=== PATIENT | female | born 1990 | race Two or more races ===

== ENCOUNTER → 2017-11-27 | Outpatient (CLI) | payer SELFPAY ==
--- NOTE | 2017-11-27 15:38 | RADIOLOGY REPORT (SQ) ---
EXAM DESCRIPTION: U/S [id number] TRNABD 1GES W/ODOP COMPLETED DATE/TIME: 11/27/2017 3:21 pm REASON FOR STUDY: Z34.81 ENCOUNTER FOR SUPRVSN OF NORMAL , FIRST TRIMESTER Z34.81 ENCOUNTE R FOR SUPRVSN OF NORMAL , FIRST TRIM COMPARISON: None. TECHNIQUE: Transabdominal static and realtime grayscale images acquired of the pelvis. Additional se lected spectral and color Doppler images recorded. All images stored on PACs. CG: Not available. CLINICAL DATES: LMP 09/25/2017. 9 weeks. LIMITATIONS: None. FINDINGS: FETUS: Single Living intrauterine . ULTRASOUND EGA: 8 weeks 6 days ULTRASOUND DAVID: 07/03/2018 EFW: Not applicable less than 20 weeks. CRL: 2.2 cm. FHR: 171 beats per minute. SURVEY: Too early to assess. AMNIOTIC FLUID: Adequate amount. PLACENTA: Not yet developed due to early gestation. SUBCHORIONIC BLEED: No SIZE OF BLEED: Not applicable. UTERUS: No masses. No anomalies. 13.5 x 8.1 x 7.2 cm. CERVICAL LENGTH: 3.4 cm. Closed. RIGHT ADNEXA: Normal ovary with normal vascular flow. 2.9 x 2.1 x 1.7 cm. No adnexal free fluid. No adnexal masses. LEFT ADNEXA: Normal ovary with normal vascular flow. 2.6 x 2 x 2.4 cm. No adnexal free fluid. No adnexal masses. FREE FLUID: None. OTHER: No other significant finding. IMPRESSION: LIVING INTRAUTERINE . EGA 8 weeks 6 days. Trimester of : First - 0 to 13 weeks. TECHNICAL DOCUMENTATION: JOB ID: [id number] [employer]- All Rights Reserved rev-07/07 Reading location - IP/workstation name: [email or web address]
== END ==
LOC: RAD 15:48
PROVIDERS: ATTEND Nurse Practitioner
DX: Z34.81 Encounter for supervision of other normal pregnancy, first trimester (principal)
CPT/HCPCS: 76801

== ENCOUNTER 2018-01-19 19:46 | Emergency (ER) | payer MEDICAID ==
[2018-01-19] MEDS ORDERED: HYDROCODONE/ACETAMINOPHEN 5-325 MG TABLET PO ONE (20:21)
--- NOTE | 2018-01-19 20:22 | ER Document Report ---
ED Medical Screen (RME) - General Chief Complaint: Flank Pain Stated Complaint: RIGHT SIDED PAIN,PAINFUL URINATION Time Seen by Provider: 01/19/18 20:19 Notes: 27 years old female presents today with right flank pain radiated to the groin for the last few days, she is 17 weeks . Denies any abdominal or pelvic cramps. The pain is constant. She was diagnosed with a UTI yesterday and given antibiotic. No flank tenderness or no tenderness over the right lower quadrant. TRAVEL OUTSIDE OF THE [place] IN LAST 30 DAYS: No Physical Exam - Vital signs Vitals: Temp Pulse Resp BP Pulse Ox 98.2 F 94 16 126/79 H 100 01/19/18 19:58 01/19/18 19:58 01/19/18 19:58 01/19/18 19:58 01/19/18 19:58 Course - Vital Signs Vital signs: Temp Pulse Resp BP Pulse Ox 98.2 F 94 16 126/79 H 100 01/19/18 19:58 01/19/18 19:58 01/19/18 19:58 01/19/18 19:58 01/19/18 19:58 Doctor's Discharge - Discharge Referrals: AZEB BARRETO, EMILY [Primary Care Provider] - Follow up as needed
[2018-01-19 21:03] LABS: ABSOLUTE BASOPHILS # (AUTO) 0.1 10^3/uL (0.0-0.2); ABSOLUTE EOSINOPHILS # (AUTO) 0.1 10^3/uL (0.0-0.6); ABSOLUTE LYMPHOCYTES (AUTO) 3.7 10^3/uL (0.5-4.7); ABSOLUTE MONOCYTES (AUTO) 1.1 10^3/uL (0.1-1.4); ABSOLUTE NEUT (AUTO) 11.8 10^3/uL (1.7-8.2); BASOPHILS % (AUTO) 0.6 % (0-2); EOSINOPHILS % (AUTO) 0.5 % (0-6); HEMATOCRIT 36.3 % (36.0-47.0); HEMOGLOBIN 12.5 g/dL (12.0-15.5); MEAN CORPUSCULAR HEMOGLOBIN 29.7 pg (27.0-33.4); MEAN CORPUSCULAR HGB CONC 34.6 g/dL (32.0-36.0); MEAN CORPUSCULAR VOLUME 86 fl (80-97); MONOCYTES % (AUTO) 6.6 % (3-13); PLATELET COUNT 302 10^3/uL (150-450); RED BLOOD COUNT 4.23 10^6/uL (3.72-5.28); SEGMENTED NEUTROPHILS % (AUTO) 70.3 % (42-78); TOTAL CELLS COUNTED % (AUTO) 100 %; WHITE BLOOD COUNT 16.7 10^3/uL (4.0-10.5)
[2018-01-19 21:18] LABS: APPEARANCE,URINE CLEAR; BILIRUBIN,URINE NEGATIVE (NEGATIVE); COLOR,URINE COLORLESS; GLUCOSE, URINE NEGATIVE (NEGATIVE); KETONES,URINE NEGATIVE (NEGATIVE); LEUKOCYTE ESTERASE,URINE LARGE (NEGATIVE); NITRITE,URINE NEGATIVE (NEGATIVE); PROTEIN,URINE NEGATIVE (NEGATIVE); URINE SPECIFIC GRAVITY 1.004; UROBILINOGEN,URINE NEGATIVE mg/dL (<2.0)
[2018-01-19 21:21] LABS: ALANINE AMINOTRANSFERASE 13 U/L (9-52); ALBUMIN 3.5 g/dL (3.5-5.0); ALKALINE PHOSPHATASE 66 U/L (38-126); ANION GAP 11 (5-19); ASPARTATE AMINO TRANSFERASE 13 U/L (14-36); BILIRUBIN,DIRECT 0.2 mg/dL (0.0-0.4); BILIRUBIN,TOTAL 0.3 mg/dL (0.2-1.3); BLOOD UREA NITROGEN 10 mg/dL (7-20); CALCIUM 9.1 mg/dL (8.4-10.2); CARBON DIOXIDE 23 mmol/L (22-30); CHLORIDE 103 mmol/L (98-107); GLUCOSE 84 mg/dL (75-110); SODIUM 137.4 mmol/L (137-145); TOTAL PROTEIN 6.4 g/dL (6.3-8.2)
[2018-01-19] MEDS ORDERED: CEFTRIAXONE INJ 1000 MG VIAL IM ONE (23:25)
[2018-01-19] MEDS ORDERED: LIDOCAINE 1% INJ-PF (10 MG/ML) 30 ML SDV INFIL ONE (23:25)
--- NOTE | 2018-01-19 23:28 | ER Document Report ---
ED General - General Chief Complaint: Flank Pain Stated Complaint: RIGHT SIDED PAIN,PAINFUL URINATION Time Seen by Provider: 01/19/18 20:19 Notes: Patient is a 27-year-old female who presents with complaint of right-sided flank pain dysuria and sensation as if she cannot fully empty her bladder. Symptoms ongoing for a few days. She saw her doctor, Dr. Paula, yesterday who placed her on nitrofurantoin. She continue have some pain in her right flank and therefore came to the ER. She was seen upfront by the physician in triage she gave her [place]. She says her pain is resolved and she feels well. She denies any fevers. No vomiting. No diarrhea. Is 16 weeks . No abnormal vaginal discharge or bleeding. 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 TRAVEL OUTSIDE OF THE [place] IN LAST 30 DAYS: No Past Medical History - Social History Smoking Status: Never Smoker Frequency of alcohol use: None Drug Abuse: None Family History: Reviewed & Not Pertinent Patient has suicidal ideation: No Patient has homicidal ideation: No Renal/ Medical History: Denies: Hx Peritoneal Dialysis Past Surgical History: Reports: Hx Section Review of Systems - Review of Systems Notes: My Normal Review Basic REVIEW OF SYSTEMS: CONSTITUTIONAL : Denies fever, chills, or sweats. UTI diagnosis. EENT: Denies eye, ear, throat, or mouth pain or symptoms. Denies nasal or sinus congestion. RESPIRATORY: Denies cough, cold, or chest congestion. Denies shortness of breath, difficulty breathing, or wheezing. GASTROINTESTINAL: Some mild right flank pain. Denies nausea, vomiting, or diarrhea. GENITOURINARY: Dysuria and urinary frequency FEMALE GENITOURINARY: Denies vaginal bleeding, abnormal or irregular periods. LMP: Currently MUSCULOSKELETAL: Denies neck or back pain or joint pain or swelling. SKIN: Denies rash or skin lesions. ALL OTHER SYSTEMS REVIEWED AND NEGATIVE. Physical Exam - Vital signs Vitals: Temp Pulse Resp BP Pulse Ox 98.2 F 94 16 126/79 H 100 01/19/18 19:58 01/19/18 19:58 01/19/18 19:58 01/19/18 19:58 01/19/18 19:58 - Notes Notes: General Appearance: Well nourished, alert, cooperative, no acute distress, no obvious discomfort. Well-appearing. Vitals: reviewed, See vital signs table. Head: no swelling or tenderness to the head Eyes: PERRL, EOMI, Conjuctiva clear Mouth: No decreasd moisture Lungs: No wheezing, No rales, No rhonci, No accessory muscle use, good air exchange bilaterally. Heart: Normal rate, Regular rythm, No murmur, no rub Abdomen: Normal BS, soft, No rigidity, some mild suprapubic abdominal tenderness to palpation. No pain to palpation of the right lower quadrant. No pain over right flank. Back: Negative Fazal sign bilaterally. Extremities: good pulses in all extremities, no swelling or tenderness in the extremities, no edema. Skin: warm, dry, appropriate color, no rash Neuro: speech clear, oriented x 3, normal affect, responds appropriately to questions. Course - Re-evaluation Re-evalutation: 01/20/18 00:46 Patient continues to look well and feels improved. I agree with the physician in triage's plan to go forward with an ultrasound to look for kidney stone mainly because her pain is one-sided. Clinically the patient otherwise does not look like she has a kidney stone as her pain is usually controlled, she only has 2 red blood cells in her urine, and she is not vomiting. Sound shows no evidence of hydronephrosis and she has bilateral ureteral jets. I therefore think it is highly unlikely she has a kidney stone. I think this is all just related to the infection. I do not not think he requires admission but the patient has normal vital signs and looks very well is able to tolerate antibiotics. I informed her and her that she should still have a low threshold to return to the ER if she has fevers, vomiting, worsening pain especially since she is . I also made sure to have her discharge instructions translated into Mexican as well. The does speak [place] well however I think they both still do better with Mexican and therefore I did have the discharge instructions translated into Mexican. I answered the questions. I strongly encouraged him to return to the ER immediately for any further concerns as mentioned above. Patient and agree with the plan and she will be discharged home. Dictation of this chart was performed using voice recognition software; therefore, there may be some unintended grammatical errors. - Vital Signs Vital signs: Temp Pulse Resp BP Pulse Ox 98.2 F 94 16 126/79 H 100 11/30/18 19:58 01/19/18 19:58 01/19/18 19:58 01/19/18 19:58 01/19/18 19:58 - Laboratory Result Diagrams: 01/19/18 20:45 01/19/18 20:45 Laboratory results interpreted by me: 01/19/18 01/19/18 01/19/18 19:58 20:45 20:45 WBC 16.7 H Absolute Neutrophils 11.8 H Creatinine 0.47 L AST 13 L Urine Blood MODERATE H Ur Leukocyte Esterase LARGE H Discharge - Discharge Clinical Impression: UTI (urinary tract infection) Qualifiers: Urinary tract infection type: site unspecified Hematuria presence: with hematuria Qualified Code(s): N39.0 - Urinary tract infection, site not specified Condition: Good Disposition: HOME, SELF-CARE Additional Instructions: Your labs show evidence of a urinary tract infection. I have sent your urine for culture. If your urine culture grows out a bacteria not responsive to your antibiotic. We did an ultrasound that does not show evidence of a kidney stone at this time. Please take Tylenol for any pain you have. Please have a very low threshold to return to the ER immediately if you have back pain, fevers, vomiting, or feel that you are worsening in any way. Please follow up with your doctor on monday for reevaluation. please stop taking the Nitrofurantoin and start taking the Keflex antibiotic I have prescribed you. Kathrine laboratorios muestran evidencia de hayes infeccin del tracto urinario. He enviado tu orina para la cultura. Si morales cultivo de orina crece hayes bacteria que no responde a morales antibitico. Hicimos hayes ecografa que no muestra evidencia de un clculo renal en darcie momento. Por favor, tome Tylenol para cualquier dolor que tenga. Tenga un umbral muy bajo para regresar a la fabián de emergencias inmediatamente si tiene dolor de espalda, fiebre, vmitos o siente que est empeorando de alguna manera. Por favor morenita un seguimiento con morales mdico el para la reevaluacin. Por favor deje de shannon Nitrofurantoin y comience a shannon el antibitico Keflex que le recet. Prescriptions: Cephalexin Monohydrate [Keflex 500 mg Capsule] 500 mg PO TID #21 capsule Forms: Return to Work
--- NOTE | 2018-01-20 00:38 | RADIOLOGY REPORT (SQ) ---
EXAM DESCRIPTION: US RETROPERITONEUM COMPLETED DATE/TME: 01/19/2018 20:20 CLINICAL HISTORY: 27 years, Female, Right ureteric stone COMPARISON: None. TECHNIQUE: Transverse and longitudinal sonographic images of the kidneys and urinary bladder LIMITATIONS: None. FINDINGS: The right kidney has maximal diameter of 9.9 cm, the left 10.8 cm. No renal calculus, mass, or hydronephrosis. No perinephric fluid collection. Urinary bladder appears grossly unremarkable. Ureteral jets are seen bilaterally IMPRESSION: Unremarkable exam copyright 2010 [employer]- All Rights Reserved
[2018-01-20 01:08] VITALS: BP 107/64
== END 2018-01-20 01:07 | disposition home or self-care (01) ==
LOC: ER 19:46
DX: N39.0 Urinary tract infection, site not specified (principal); R10.9 Unspecified abdominal pain
CPT/HCPCS: 99284; 96372; 36415; 85025; 80053; 81001; 76770; J3490; J0696

== ENCOUNTER → 2018-02-06 | Outpatient (CLI) | payer SELFPAY ==
--- NOTE | 2018-02-06 15:19 | RADIOLOGY REPORT (SQ) ---
EXAM DESCRIPTION: U/S OB 14+ TRNABD 1GES W/O DOP COMPLETED DATE/TIME: 02/06/2018 2:52 pm REASON FOR STUDY: Z34.82 ENCOUNTER FOR SUPRVSN OF NORMAL , SECOND TRIMESTER Z34.82 ENCOUNT ER FOR SUPRVSN OF NORMAL , SECOND TRI COMPARISON: 11/27/2017 TECHNIQUE: Static and Dynamic grayscale imaging performed of gravid uterus using transabdominal appr oach. Additional selected color Doppler and spectral images recorded. All stored on PACS. LIMITATIONS: The examination is limited due to the patient's body habitus. FINDINGS: FETUSES SEEN:1 EGA: 20 weeks 0 days Calculated using BPD,FL,HC,AC documented on images. No discrepancy with clinica l dates. DAVID: 06/26/2018 EFW: 333 grams PERCENTILE: Not applicable. Fetus less than or equal to 20 weeks gestation. TC: Adequate amount. PLACENTA: Fundal/anterior PRESENTATION: Transverse ANATOMY: HEART RATE: 139 beats per minute. FOUR CHAMBER HEART: Limited visualization. THREE VESSEL CORD: Yes. CORD INSERTION: Visualized. KIDNEYS AND BLADDER: Visualized. Appear normal. STOMACH: Visualized. Appears normal. SPINE: Limited visualization. BRAIN AND LATERAL VENTRICLES: Limited visualization. The lateral ventricle measures 3 mm. Limited visualization of the cerebellum and the cisterna magna. OTHER: No other significant finding. MATERNAL ADNEXA: Maternal ovaries not visualized. CERVICAL LENGTH: 3.9 cm Closed. OTHER: No other significant finding. IMPRESSION: LIVING INTRAUTERINE . ESTIMATED GESTATIONAL AGE 20 weeks 0 days Limited examination as above. Trimester of : Second trimester - 13 weeks 1 day to 27 weeks 6 days. TECHNICAL DOCUMENTATION: JOB ID: [id number] [employer]- All Rights Reserved Reading location - IP/workstation name: [email or web address]
== END ==
LOC: RAD 15:49
PROVIDERS: ATTEND Nurse Practitioner
DX: Z34.82 Encounter for supervision of other normal pregnancy, second trimester (principal)
CPT/HCPCS: 76805

== ENCOUNTER → 2018-02-28 | Outpatient (CLI) | payer SELFPAY ==
[2018-02-28 09:56] LABS: 24 HOUR URINE PROTEIN RESULT 390 mg/day (42-225); URINE PROTEIN 14.2 mg/dL (<12)
[2018-02-28 09:59] LABS: ALANINE AMINOTRANSFERASE 22 U/L (9-52); ALBUMIN 3.6 g/dL (3.5-5.0); ALKALINE PHOSPHATASE 68 U/L (38-126); ANION GAP 7 (5-19); ASPARTATE AMINO TRANSFERASE 18 U/L (14-36); BILIRUBIN,DIRECT 0.2 mg/dL (0.0-0.4); BILIRUBIN,TOTAL 0.2 mg/dL (0.2-1.3); BLOOD UREA NITROGEN 9 mg/dL (7-20); CALCIUM 9.1 mg/dL (8.4-10.2); CARBON DIOXIDE 25 mmol/L (22-30); CHLORIDE 104 mmol/L (98-107); GLUCOSE 81 mg/dL (75-110); POTASSIUM 4.6 mmol/L (3.6-5.0); SODIUM 136.4 mmol/L (137-145); TOTAL PROTEIN 6.2 g/dL (6.3-8.2); URIC ACID 3.1 mg/dL (2.5-6.2)
== END ==
LOC: OD 08:49
PROVIDERS: ATTEND Nurse Practitioner
DX: R80.9 Proteinuria, unspecified (principal)
CPT/HCPCS: 36415; 80053; 83615; 84156; 84550

== ENCOUNTER 2018-06-13 10:19 | Outpatient (CLI) | payer SELFPAY ==
--- NOTE | 2018-06-13 15:22 | RADIOLOGY REPORT (SQ) ---
EXAM DESCRIPTION: U/S OB LIMITED COMPLETED DATE/TIME: 06/13/2018 2:23 pm REASON FOR STUDY: suspected macrosomia COMPARISON: None. TECHNIQUE: Limited transabdominal grayscale ultrasound for evaluation of specific requested obstetri elly parameters. LIMITATIONS: None. FINDINGS: CERVICAL LENGTH: 4.2 cm. Closed. TC: 16.1 Cm. FHR: 139 beats per minute. PRESENTATION: Cephalic. PLACENTA: Anterior grade 1 ANATOMY: Not assessed OTHER: Estimated body weight 3,664 +/- 542 g. 86 percentile. Estimated date of delivery 2018 IMPRESSION: LIMITED OBSTETRICAL ULTRASOUND WITH MEASURED PARAMETERS DELINEATED ABOVE. Trimester of : 3rd TECHNICAL DOCUMENTATION: JOB ID: [id number] [employer]- All Rights Reserved Reading location - IP/workstation name: [email or web address]
== END 2018-06-13 15:35 | disposition home or self-care (01) ==
LOC: LC 10:19
PROVIDERS: ATTEND Obstetrics & Gynecology
PROC: 4A1HXCZ Monitoring of Products of Conception, Cardiac Rate, External Approach (ICD-10-PCS; principal; 2018-06-13)
DX: O36.63X0 Maternal care for excessive fetal growth, third trimester, not applicable or unspecified (principal); Z3A.37 37 weeks gestation of pregnancy
CPT/HCPCS: 59025; 76815

== ENCOUNTER 2018-06-16 09:07 | Outpatient (CLI) | payer SELFPAY ==
--- NOTE | 2018-06-16 09:11 | Non Stress Test Report ---
Non Stress Test Datetime Report Generated by CPN: 06/16/2018 09:11 DEMOGRAPHIC EGA NST: 37.2 INDICATION Indication for Study: Ordered by Provider Indication for Study (NST) Other: sent from the office for repeat nst VITAL SIGNS Temperature - NST: 98.1 Pulse - NST: 91 RESP - NST: 18 NBPSYS NST: 117 NBPDIA NST: 68 MONITORING Monitor Explained: Monitor Explained; Test Explained; Patient Verbalized Understanding Time on Monitor: 06/13/2018 11:00 Time off Monitor: 06/13/2018 15:33 NST Duration: 273 NST INTERVENTIONS NST Interventions: PO Hydration; Reposition Patient Physician Notified NST: Dr Younger BABY A: [id number] BABY A Movement : Present Contraction Frequency : irreg FHR Baseline : 125 Accelerations : 15X15 Decelerations : None Variability : Moderate 6-25bpm NST Review: Meets Criteria for Reactive NST NST Review and Verified By : Reji RN NST Results: Reactive NST REPORT Report Trigger: Send Report
--- NOTE | 2018-06-16 10:10 | Non Stress Test Report ---
Non Stress Test Datetime Report Generated by CPN: 06/16/2018 10:10 DEMOGRAPHIC EGA NST: 37.5 INDICATION Indication for Study: Ordered by Provider VITAL SIGNS Temperature - NST: 97.7 Pulse - NST: 96 RESP - NST: 18 NBPSYS NST: 106 NBPDIA NST: 55 MONITORING Monitor Explained: Monitor Explained; Test Explained; Patient Verbalized Understanding Time on Monitor: 06/16/2018 09:20 Time off Monitor: 06/16/2018 10:04 NST Duration: 44 NST INTERVENTIONS NST Interventions: PO Hydration; Reposition Patient Physician Notified NST: Dr Martell BABY A Contraction Frequency : irregular FHR Baseline : 135 Accelerations : 15X15 Decelerations : None Variability : Moderate 6-25bpm NST Review: Meets Criteria for Reactive NST NST Review and Verified By : B Baidy RN NST Results: Reactive NST REPORT Report Trigger: Send Report
== END 2018-06-16 10:11 | disposition home or self-care (01) ==
LOC: LC 09:07
PROVIDERS: ATTEND Obstetrics & Gynecology
PROC: 4A1HXCZ Monitoring of Products of Conception, Cardiac Rate, External Approach (ICD-10-PCS; principal; 2018-06-16)
DX: Z34.93 Encounter for supervision of normal pregnancy, unspecified, third trimester (principal)
CPT/HCPCS: 59025

== ENCOUNTER 2018-06-21 08:53 | Outpatient (CLI) | payer SELFPAY ==
--- NOTE | 2018-06-21 11:47 | RADIOLOGY REPORT (SQ) ---
EXAM DESCRIPTION: U/S PROFILE W/O STRESS COMPLETED DATE/TIME: 06/21/2018 10:36 am REASON FOR STUDY: NON REACTIVE NST COMPARISON: OB limited ultrasound 06/13/2018 TECHNIQUE: Limited boucher-scale realtime and static images of the fetus to measure specified parameter s. LIMITATIONS: None. FINDINGS: HEART RATE: 152 beats per minute. TC: 14.7 cm. BREATHING MOVEMENT: 2 points. MOVEMENT: 2 points. POSTURE AND TONE: 2 points. QUALITATIVE TC: 2 points. OTHER: Fetus is cephalic orientation IMPRESSION: BIOPHYSICAL PROFILE: 09/27. Trimester of : Third - 28 weeks to delivery COMMENT: BREATHING MOVEMENTS: 2 POINTS: PRESENT 0 POINTS: ABSENT MOTION: 2 POINTS: PRESENT 0 POINTS: ABSENT TONE: 2 POINTS: PRESENT 0 POINTS: ABSENT AMNIOTIC FLUID VOLUME: 2 POINTS: LARGEST POCKET GREATER THAN 2 CM DEPTH. 0 POINTS: NO POCKET OF 2 CM. TECHNICAL DOCUMENTATION: JOB ID: [id number] [employer]- All Rights Reserved Reading location - IP/workstation name: [email or web address]
--- NOTE | 2018-06-21 11:56 | Non Stress Test Report ---
Non Stress Test Datetime Report Generated by CPN: 06/21/2018 11:56 DEMOGRAPHIC EGA NST: 38.3 INDICATION Indication for Study: Other Indication for Study (NST) Other: monitoring per health department MONITORING Monitor Explained: Monitor Explained; Test Explained; Patient Verbalized Understanding Time on Monitor: 06/21/2018 09:00 Time off Monitor: 06/21/2018 11:53 NST Duration: 173 NST INTERVENTIONS NST Interventions: PO Hydration; Reposition Patient Physician Notified NST: N Reyes CNM BABY A: [id number] BABY A Movement : Present Contraction Frequency : 0 FHR Baseline : 140 Accelerations : 15X15 Decelerations : None Variability : Moderate 6-25bpm NST Review: Meets Criteria for Reactive NST NST Review and Verified By : Rosalinda Camp RNC NST Results: Reactive NST COMMENTS NST Comments: BPP 8/8 NST REPORT Report Trigger: Send Report
== END 2018-06-21 11:58 | disposition home or self-care (01) ==
LOC: LC 08:53
PROVIDERS: ATTEND Student in an Organized Health Care Education/Training Program
DX: O36.8390 Maternal care for abnormalities of the fetal heart rate or rhythm, unspecified trimester, not applicable or unspecified (principal); Z3A.38 38 weeks gestation of pregnancy
CPT/HCPCS: 59025; 76819

== ENCOUNTER 2018-06-23 07:52 | Outpatient (CLI) | payer SELFPAY | END 2018-06-23 09:00 | disposition home or self-care (01) | LOC: LC 07:52 | PROVIDERS: ATTEND Student in an Organized Health Care Education/Training Program | PROC: 4A1HXCZ Monitoring of Products of Conception, Cardiac Rate, External Approach (ICD-10-PCS; principal; 2018-06-23) | DX: Z34.93 Encounter for supervision of normal pregnancy, unspecified, third trimester (principal); Z3A.38 38 weeks gestation of pregnancy | CPT/HCPCS: 59025 ==

== ENCOUNTER 2018-06-27 04:54 | Inpatient (IN) | payer SELFPAY ==
[2018-06-26 12:39] LABS: ABSOLUTE EOSINOPHILS # (AUTO) 0.1 10^3/uL (0.0-0.6); ABSOLUTE LYMPHOCYTES (AUTO) 2.3 10^3/uL (0.5-4.7); ABSOLUTE MONOCYTES (AUTO) 0.6 10^3/uL (0.1-1.4); ABSOLUTE NEUT (AUTO) 7.8 10^3/uL (1.7-8.2); BASOPHILS % (AUTO) 0.2 % (0-2); EOSINOPHILS % (AUTO) 0.5 % (0-6); HEMATOCRIT 38.5 % (36.0-47.0); LYMPHOCYTES % (AUTO) 21.5 % (13-45); MEAN CORPUSCULAR HEMOGLOBIN 29.3 pg (27.0-33.4); MEAN CORPUSCULAR HGB CONC 33.8 g/dL (32.0-36.0); MEAN CORPUSCULAR VOLUME 87 fl (80-97); MONOCYTES % (AUTO) 5.2 % (3-13); PLATELET COUNT 255 10^3/uL (150-450); RED BLOOD COUNT 4.45 10^6/uL (3.72-5.28); RED CELL DISTRIBUTION WIDTH 14.5 % (11.5-14.0); SEGMENTED NEUTROPHILS % (AUTO) 72.6 % (42-78); TOTAL CELLS COUNTED % (AUTO) 100 %; WHITE BLOOD COUNT 10.7 10^3/uL (4.0-10.5)
[2018-06-26 12:48] LABS: APPEARANCE,URINE CLOUDY; BILIRUBIN,URINE NEGATIVE (NEGATIVE); GLUCOSE, URINE NEGATIVE (NEGATIVE); KETONES,URINE NEGATIVE (NEGATIVE); LEUKOCYTE ESTERASE,URINE TRACE (NEGATIVE); NITRITE,URINE NEGATIVE (NEGATIVE); PROTEIN,URINE 30 mg/dL (NEGATIVE); URINE SPECIFIC GRAVITY 1.024; UROBILINOGEN,URINE NEGATIVE mg/dL (<2.0)
[2018-06-26 12:49] LABS: COLOR,URINE YELLOW
[2018-06-26 13:06] LABS: URINE AMPHETAMINES SCREEN NEGATIVE; URINE BARBITURATES SCREEN NEGATIVE; URINE BENZODIAZEPINES SCREEN NEGATIVE; URINE COCAINE SCREEN NEGATIVE; URINE MARIJUANA (THC) SCREEN NEGATIVE; URINE METHADONE SCREEN NEGATIVE; URINE PHENCYCLIDINE SCREEN NEGATIVE
[2018-06-27] MEDS ORDERED: RINGERS SOLUTION,LACTATED 1,000 ML IV PRN ×2 (05:00→09:47)
[2018-06-27] MEDS ORDERED: LIDOCAINE 0.5% INJ-PF (5 MG/ML) 50 ML SDV SUBCUT PRN (05:00)
[2018-06-27] MEDS ORDERED: LACTATED RINGERS 1000 ML IV PRN (05:00)
[2018-06-27] MEDS ORDERED: CEFAZOLIN 2 GM/D5W RTU 2 GM/50 ML RTUPB IV PRN (05:00)
[2018-06-27] MEDS ORDERED: CEFAZOLIN IV PRN (05:37)
[2018-06-27] MEDS ORDERED: [UNRECOGNIZED DRUG - OTHER] IV PRN (05:37)
[2018-06-27] MEDS ORDERED: CEFAZOLIN 1 GM/D5W RTU 3 GM/150 ML RTUPB IV ONE (07:15)
[2018-06-27] MEDS ORDERED: MIDAZOLAM 2 MG/2 ML INJ ONE (07:26)
[2018-06-27] MEDS ORDERED: ACETAMINOPHEN 1,000 MG/100 ML RTUPB IV ONE (07:26)
[2018-06-27] MEDS ORDERED: FENTANYL CITRATE INJ/PF 100 MCG/2 ML AMPUL ONE (07:26)
[2018-06-27] MEDS ORDERED: EPHEDRINE SULFATE INJ 50 MG/1 ML AMPULE ONE (07:26)
[2018-06-27] MEDS ORDERED: OXYTOCIN 10 UNIT/ML VIAL ONE (07:26)
[2018-06-27] MEDS ORDERED: MISOPROSTOL 0.2 MG TABLET ONE (08:36)
[2018-06-27] MEDS ORDERED: DIPHENHYDRAMINE HCL 50 MG/ML VIAL IV PRN (08:50)
[2018-06-27] MEDS ORDERED: MORPHINE SULFATE 10 MG/ML INJ IV PRN (08:50)
[2018-06-27] MEDS ORDERED: ONDANSETRON HCL INJ/PF 4 MG/2 ML SDV IV PRN (08:50)
[2018-06-27] MEDS ORDERED: PROMETHAZINE HCL INJ 25 MG/1 ML VIAL IV PRN ×3 (08:50→09:47)
[2018-06-27] MEDS ORDERED: MEPERIDINE HCL/PF INJ 25 MG/1 ML DISP.SYRIN IV PRN (08:50)
[2018-06-27] MEDS ORDERED: FENTANYL CITRATE INJ/PF 100 MCG/2 ML AMPUL IV PRN ×3 (08:50)
[2018-06-27] MEDS ORDERED: OXYTOCIN/NORMAL SALINE 20 UNIT/1,000 ML RTUINJ IV PRN (09:47)
[2018-06-27] MEDS ORDERED: MEASLES,MUMPS&RUBELLA VACC/PF 0.5 ML VIAL SUBCUT PRN (09:47)
[2018-06-27] MEDS ORDERED: HYDROMORPHONE HCL INJ/PF 2 MG/ML AMPULE IV PRN (09:47)
[2018-06-27] MEDS ORDERED: OXYCODONE-ACETAMINOPHEN 5-325 MG TABLET PO PRN ×2 (09:47)
[2018-06-27] MEDS ORDERED: ACETAMINOPHEN 1,000 MG/100 ML RTUPB IV PRN (09:47)
[2018-06-27] MEDS ORDERED: SIMETHICONE 80 MG TAB.CHEW PO PRN (09:47)
[2018-06-27] MEDS ORDERED: ACETAMINOPHEN 325 MG TABLET PO PRN (09:47)
[2018-06-27] MEDS ORDERED: DIPH/PERTUSS(ACELL)/TETANUS VAC/PF 0.5 ML SYR (>=10YO) IM PRN (09:47)
--- NOTE | 2018-06-27 10:03 | Brief Operative Note ---
BRIEF OPERATIVE REPORT DATE OF SURGERY: 06/27/18 TIME OF SURGERY: 10:00 PREOPERATIVE DIAGNOSIS: , 39+1ega, Macrosomia, History of prior section, declines TOLAC POSTOPERATIVE DIAGNOSIS: NESHA - delivered, macrosomia, Complete breech SURGEON: LISSETT IZQUIERDO FINDINGS: VMI, Weight 9#4oz (4185g), Apgars 9/9, complete breech delivered in breech presentation, normal bilateral tubes and uterus, pedunculated 3cm f ibroid. IVF 1600ml, UOP 200ml. 40 units of pitocin (20 units into bag of 20 units in 1liter). Cytotec 1000mcg per rectum for uterine tone. COMPLICATIONS: uterine atony ESTIMATED BLOOD LOSS: 1048 TISSUE REMOVED OR ALTERED: placenta and cord TECHNICAL PROCEDURE: Repeat Section
[2018-06-27] MEDS ORDERED: KETOROLAC TROMETHAMINE 60 MG/2 ML SDV ONE (13:46)
[2018-06-27] MEDS ORDERED: PHENYLEPHRINE HCL INJ/PF 10 MG/1 ML SDV ONE (13:46)
[2018-06-27] MEDS ORDERED: METOCLOPRAMIDE HCL INJ/PF 10 MG/2 ML SDV ONE (13:46)
[2018-06-27] MEDS ORDERED: DEXAMETHASONE SOD PHOSPHATE INJ 4 MG/1 ML VIAL ONE (13:46)
[2018-06-27] MEDS ORDERED: ONDANSETRON HCL INJ/PF 4 MG/2 ML SDV ONE (13:46)
[2018-06-27] MEDS: PRENATAL VITAMIN W DHA CAPSULE PO SCH (14:33)
[2018-06-27] MEDS: DOCUSATE SODIUM 100 MG CAPSULE PO SCH ×2 (14:33→18:30)
--- NOTE | 2018-06-27 17:06 | PDOC DELIVERY SUMMARY ---
Delivery Summary - Maternal Hx : IV Hx Para: II Hx # Term Pregnancies: 2 Hx # Pregnancies: 0 Hx Total # of Abortions (Sponateous & Elective): 1 Number of Living Children: 2 DAVID: 07/02/18 Gestational Age: 39+2 Risk Factors: Previous , Other - macrosomia Ruptured Membranes: AROM Time of Rupture: 08:25 Fluids: Clear Fluid Description: clear - Delivery Labor: Not In Labor Presentation: Breech Heart Rate Monitoring: Done Pre-Operatively Uterine Contraction Monitoring: External Support Person Present: Yes Location: OR : Scheduled Placenta: Within Normal Limits Placenta Description: normal Number of Vessels (Cord): 3 Nuchal Cord: No Delivery of Placenta Date: 06/27/18 Delivery of Placenta Time: 08:26 Estimated Blood Loss: 1048 - Medications Type of Anesthesia:: Spinal - Intrapartum Medications Intrapartum Medications: 40 units pitocin IV, 1000mcg IN cytotec - Delivery Medications Delivery Meds: Cytotec 1000mcg Per Rectum/Vagina - Infant Assess and Care Baby 1 Male Delivery of Infant Date: 06/27/18 Delivery of Infant Time: 08:25 at 1 minute: 9 at 5 minutes: 9 Preprinted Number On Band: [id number] Infant Skin to Skin: No Skin to Skin (Mins): 0 To Nursery At: 08:37 Mode of Transport: Bassinet Infant Delivery Weight: 4,185 Infant Delivery Length: 21 in - Delivery Personnel Public Relations Account Executive: ANNIE MIMS RN: CEDRIC MUSE RN: IVONNE JENKINS MD: LISSETT IZQUIERDO
[2018-06-27] MEDS: KETOROLAC TROMETHAMINE INJ/PF 30 MG/1 ML SDV IV SCH ×2 (18:30→21:29)
[2018-06-28] MEDS: KETOROLAC TROMETHAMINE INJ/PF 30 MG/1 ML SDV IV SCH (01:45)
[2018-06-28] MEDS: IBUPROFEN 800 MG TABLET PO SCH ×4 (05:43→23:09)
[2018-06-28 07:26] LABS: HEMATOCRIT 32.2 % (36.0-47.0); MEAN CORPUSCULAR HEMOGLOBIN 29.4 pg (27.0-33.4); MEAN CORPUSCULAR HGB CONC 33.8 g/dL (32.0-36.0); MEAN CORPUSCULAR VOLUME 87 fl (80-97); PLATELET COUNT 201 10^3/uL (150-450); RED BLOOD COUNT 3.71 10^6/uL (3.72-5.28); RED CELL DISTRIBUTION WIDTH 14.1 % (11.5-14.0); WHITE BLOOD COUNT 12.2 10^3/uL (4.0-10.5)
[2018-06-28 07:27] LABS: HEMOGLOBIN 10.9 g/dL (12.0-15.5)
[2018-06-28] MEDS: PRENATAL VITAMIN W DHA CAPSULE PO SCH (09:44)
[2018-06-28] MEDS: DOCUSATE SODIUM 100 MG CAPSULE PO SCH ×2 (09:45→17:59)
--- NOTE | 2018-06-28 10:29 | PDOC PROGRESS REPORT ---
Subjective-OB Progress Note for:: 06/28/18 Physical Exam (OB) Vital Signs: Temp Pulse Resp BP Pulse Ox 98.2 F 102 H 20 125/78 100 06/28/18 08:48 06/28/18 08:48 06/28/18 08:48 06/28/18 08:48 06/28/18 08:48 Intake & Output 06/27/18 06/28/18 06/29/18 06:59 06:59 06:59 Intake Total 1075 420 Output Total 3300 Balance -2225 420 Weight 118.84 kg - PIH/Pre-Eclampsia DTR's: 2 + Clonus: Negative Headache: Absent Epigastric Pain: No Visual Changes: No - Dressing Removed: No Incision: Well Approximated - Lochia Lochia Amount: Scant < 10 ml Lochia Color: Rubra/Red - Abdomen Description: Tender, Soft Hernia Present: No Bowel Sounds: Normoactive Flatus Presence: Present Stool: No Fundal Description: Firm, Midline Fundal Height: u/u - u/2 Objective-Diagnostic Laboratory: 06/28/18 06:38 06/28/18 06:38 WBC 12.2 H RBC 3.71 L Hgb 10.9 L D Hct 32.2 L MCV 87 MCH 29.4 MCHC 33.8 RDW 14.1 H Plt Count 201
[2018-06-29] MEDS: IBUPROFEN 800 MG TABLET PO SCH ×2 (05:20→12:20)
[2018-06-29] MEDS: DOCUSATE SODIUM 100 MG CAPSULE PO SCH (09:50)
[2018-06-29] MEDS: PRENATAL VITAMIN W DHA CAPSULE PO SCH (09:50)
[2018-06-29 10:34] VITALS: BP 111/58
--- NOTE | 2018-06-29 10:52 | PDOC DISCHARGE SUMMARY ---
Final Diagnosis Discharge Date: 06/29/18 - Final Diagnosis (1) Breech presentation delivered Is this a current diagnosis for this admission?: Yes (2) Previous section Is this a current diagnosis for this admission?: Yes (3) S/P repeat low transverse Is this a current diagnosis for this admission?: Yes Discharge Data - Discharge Medication Prescriptions: Ibuprofen [Motrin 800 mg Tablet] 800 mg PO Q8HP PRN #90 tablet PRN Reason: Oxycodone HCl/Acetaminophen [Percocet 5-325 mg Tablet] 1 tab PO Q4HP PRN #30 tablet PRN Reason: Home Medications: Vit,Calc76/Iron/Folic [Prenatabs Rx Tablet] 1 tab PO DAILY 06/13/18 Ibuprofen [Motrin 800 mg Tablet] 800 mg PO Q8HP PRN #90 tablet 06/29/18 Oxycodone HCl/Acetaminophen [Percocet 5-325 mg Tablet] 1 tab PO Q4HP PRN #30 tablet 06/29/18 Procedures: NST Intrapartum Procedure(s): : Low Cervical, Transverse - Diagnosis Test Laboratory: Temp Pulse Resp BP Pulse Ox 98.0 F 96 16 111/58 L 100 06/29/18 10:33 06/29/18 10:33 06/29/18 10:33 06/29/18 10:33 06/29/18 10:33 06/26/18 06/26/18 06/28/18 11:22 11:31 06:38 RBC 4.45 3.71 L Hgb 13.0 10.9 L D Hct 38.5 32.2 L Urine Opiates Screen NEGATIVE - Discharge information/Instructions Discharge Activity: Balance Activity w/Rest, No Lifting/Push/Pulling, Pelvic Rest, No tub bath Discharge Diet: Regular Disposition: HOME, SELF-CARE Follow up with: [facility] in: 1, Weeks
== END 2018-06-29 14:09 | disposition home or self-care (01) | DRG 788 ==
LOC: 2S 04:54 → EDSTATUS 09:45
PROVIDERS: ADMIT Student in an Organized Health Care Education/Training Program; ATTEND Student in an Organized Health Care Education/Training Program
PROC: 10D00Z1 Extraction of Products of Conception, Low, Open Approach (ICD-10-PCS; principal; 2018-06-27 07:45)
DX: O32.1XX0 Maternal care for breech presentation, not applicable or unspecified (principal); O34.211 Maternal care for low transverse scar from previous cesarean delivery; Z37.0 Single live birth; O36.63X0 Maternal care for excessive fetal growth, third trimester, not applicable or unspecified; O34.13 Maternal care for benign tumor of corpus uteri, third trimester; D25.9 Leiomyoma of uterus, unspecified; O62.2 Other uterine inertia; Z3A.39 39 weeks gestation of pregnancy
CPT/HCPCS: 1961; 36415; 59025; 80307; 81001; 85025; 85027; 86850; 86900; 86901; 88307; 94799; C1765; J0131; J1100; J1885; J2250; J2370; J2405; J2590; J2765; J3010; J3490; J7120

== ENCOUNTER 2018-09-05 01:59 | Emergency (ER) | payer MEDICAID, OTHER ==
[2018-09-05 03:35] LABS: ABSOLUTE BASOPHILS # (AUTO) 0.1 10^3/uL (0.0-0.2); ABSOLUTE EOSINOPHILS # (AUTO) 0.2 10^3/uL (0.0-0.6); ABSOLUTE MONOCYTES (AUTO) 0.7 10^3/uL (0.1-1.4); ABSOLUTE NEUT (AUTO) 9.3 10^3/uL (1.7-8.2); BASOPHILS % (AUTO) 0.5 % (0-2); EOSINOPHILS % (AUTO) 1.3 % (0-6); HEMATOCRIT 39.8 % (36.0-47.0); HEMOGLOBIN 13.3 g/dL (12.0-15.5); LYMPHOCYTES % (AUTO) 22.6 % (13-45); MEAN CORPUSCULAR HEMOGLOBIN 28.5 pg (27.0-33.4); MEAN CORPUSCULAR HGB CONC 33.3 g/dL (32.0-36.0); MEAN CORPUSCULAR VOLUME 86 fl (80-97); MONOCYTES % (AUTO) 4.9 % (3-13); PLATELET COUNT 296 10^3/uL (150-450); RED BLOOD COUNT 4.65 10^6/uL (3.72-5.28); RED CELL DISTRIBUTION WIDTH 13.8 % (11.5-14.0); SEGMENTED NEUTROPHILS % (AUTO) 70.7 % (42-78); TOTAL CELLS COUNTED % (AUTO) 100 %; WHITE BLOOD COUNT 13.2 10^3/uL (4.0-10.5)
[2018-09-05 03:39] LABS: APPEARANCE,URINE SLIGHTLY-CLOUDY; BILIRUBIN,URINE NEGATIVE (NEGATIVE); COLOR,URINE AMBER; GLUCOSE, URINE NEGATIVE (NEGATIVE); KETONES,URINE NEGATIVE (NEGATIVE); LEUKOCYTE ESTERASE,URINE SMALL (NEGATIVE); NITRITE,URINE NEGATIVE (NEGATIVE); PROTEIN,URINE NEGATIVE (NEGATIVE); UROBILINOGEN,URINE NEGATIVE mg/dL (<2.0)
[2018-09-05 03:42] LABS: ALANINE AMINOTRANSFERASE 85 U/L (9-52); ALKALINE PHOSPHATASE 123 U/L (38-126); ANION GAP 10 (5-19); ASPARTATE AMINO TRANSFERASE 103 U/L (14-36); BILIRUBIN,DIRECT 0.3 mg/dL (0.0-0.4); BILIRUBIN,TOTAL 0.4 mg/dL (0.2-1.3); BLOOD UREA NITROGEN 14 mg/dL (7-20); CALCIUM 9.2 mg/dL (8.4-10.2); CARBON DIOXIDE 25 mmol/L (22-30); CHLORIDE 106 mmol/L (98-107); GLUCOSE 109 mg/dL (75-110); LIPASE 129.6 U/L (23-300); POTASSIUM 4.5 mmol/L (3.6-5.0); TOTAL PROTEIN 6.8 g/dL (6.3-8.2)
[2018-09-05 03:47] LABS: ADD MANUAL MICROSCOPIC YES
[2018-09-05 03:48] LABS: BACTERIA,URINE TRACE /HPF
--- NOTE | 2018-09-05 04:25 | ER Document Report ---
ED General - General Chief Complaint: Abdominal Pain Stated Complaint: SIDE AND BACK PAIN Time Seen by Provider: 09/05/18 03:50 Primary Care Provider: AZEB BARRETO APRN [Primary Care Provider] - Follow up as needed Notes: 28-year-old female with approximately 2 months ago presents to the emergency department with chief complaint of right sided flank pain that came on acutely yesterday. Patient states that her symptoms are consistent with when she had a urinary tract infection while she was . She says that the pain does radiate up into her right shoulder blade and does not radiate around to her right lower quadrant to the suprapubic area. She denies any urinary symptoms. She denies fevers or chills, acute shortness of breath or chest pain, did have one episode of vomiting with some nausea. No abnormal vaginal discharge. No other complaints. TRAVEL OUTSIDE OF THE [place] IN LAST 30 DAYS: No - Related Data Allergies/Adverse Reactions: No Known Allergies Allergy (Verified 06/16/18 09:35) Past Medical History - Social History Smoking Status: Unknown if Ever Smoked Family History: Reviewed & Not Pertinent Patient has suicidal ideation: No Patient has homicidal ideation: No Renal/ Medical History: Denies: Hx Peritoneal Dialysis Past Surgical History: Reports: Hx Section Review of Systems - Review of Systems Constitutional: See HPI EENT: No symptoms reported Cardiovascular: See HPI Respiratory: See HPI Gastrointestinal: See HPI Genitourinary: See HPI Female Genitourinary: See HPI Musculoskeletal: No symptoms reported Skin: No symptoms reported Hematologic/Lymphatic: No symptoms reported Neurological/Psychological: No symptoms reported Physical Exam - Vital signs Vitals: Temp Pulse Resp BP Pulse Ox 97.4 F 78 16 118/66 99 09/05/18 02:26 09/05/18 02:26 09/05/18 02:26 09/05/18 02:26 09/05/18 02:26 - Notes Notes: PHYSICAL EXAMINATION: Reviewed vital signs and charting by RN GENERAL: Alert, interacts well. No acute distress. HEAD: Normocephalic, atraumatic. EYES: Pupils equal and round. Extraocular movements intact. ENT: Oral mucosa moist, tongue midline. NECK: Full range of motion. Trachea midline. LUNGS: Clear to auscultation bilaterally, no wheezes, rales, or rhonchi. No respiratory distress. HEART: Regular rate and rhythm. No murmur ABDOMEN: soft, non-tender. No distention. Bowel sounds present BACK: R CVAT EXTREMITIES: Moves all 4 extremities spontaneously. No edema, No cyanosis. PSYCH: Normal affect, normal mood. SKIN: Warm, dry, normal turgor. No rashes or lesions noted. Course - Re-evaluation Re-evalutation: 09/05/18 04:26 Overall well-appearing. Patient does have a very mild leukocytosis. Patient does have elevated liver enzymes consistent with steatosis, urine had 10 WBCs and was a good clean sample. Because patient symptoms are consistent with previous UTI I will send the urine for culture and place her on a short course of Macrobid. I will give her some Zofran for nausea. I will give her pain control here in the emergency department. She is otherwise stable for discharge. - Vital Signs Vital signs: Temp Pulse Resp BP Pulse Ox 97.4 F 78 16 118/66 99 09/05/18 02:26 09/05/18 02:26 09/05/18 02:26 09/05/18 02:26 09/05/18 02:26 - Laboratory Result Diagrams: 09/05/18 03:10 09/05/18 03:10 Laboratory results interpreted by me: 09/05/18 09/05/18 09/05/18 03:10 03:10 03:10 WBC 13.2 H Absolute Neutrophils 9.3 H Creatinine 0.51 L AST 103 H ALT 85 H Ur Leukocyte Esterase SMALL H Discharge - Discharge Clinical Impression: Urinary tract infection Qualifiers: Urinary tract infection type: acute cystitis Hematuria presence: without hematu eleonora Qualified Code(s): N30.00 - Acute cystitis without hematuria Condition: Good Disposition: HOME, SELF-CARE Additional Instructions: Your urine shows findings consistent with a urinary tract infection. Please take all the antibiotics as directed even if your symptoms have improved. Please follow-up with your primary care physician as needed. Return to emergency room if you develop fever >101F, persistent vomiting, become lethargic, have severe pain in your sides, or any other symptoms that are concerning to you. Morales orina muestra hallazgos consistentes con hayes infeccin del tracto urinario. Eloy todos los antibiticos segn lo indicado, incluso si nikkie sntomas sanchez murray. Por favor morenita un seguimiento con morales mdico de atencin primaria segn sea necesario. Regrese a la fabián de emergencias si tiene fiebre> 101F, vmitos persistentes, letargo, dolor omar en los costados o cualquier otro sntoma que lo preocupe. Referrals: AZEB BARRETO, [employer] [facility] [Primary Care Provider] - Follow up as needed
[2018-09-05] MEDS ORDERED: NITROFURANTOIN MONOHYD/M-CRYST 100 MG CAPSULE PO ONE (04:28)
[2018-09-05] MEDS ORDERED: HYDROCODONE/ACETAMINOPHEN 5-325 MG TABLET PO ONE (04:31)
[2018-09-05] MEDS ORDERED: ONDANSETRON ODT 4 MG TAB (6 TAB/ER DISP) PO PRN (04:47)
[2018-09-05 05:12] VITALS: BP 164/72
== END 2018-09-05 05:11 | disposition home or self-care (01) ==
LOC: ER 01:59
DX: N30.00 Acute cystitis without hematuria (principal); R10.9 Unspecified abdominal pain
CPT/HCPCS: 99283; 36415; 87086; 83690; 85025; 81025; 80053; 81001; J8499

== ENCOUNTER 2018-11-10 22:53 | Emergency (ER) | payer OTHER ==
[2018-11-11 03:29] LABS: APPEARANCE,URINE SLIGHTLY-CLOUDY; BILIRUBIN,URINE NEGATIVE (NEGATIVE); COLOR,URINE AMBER; GLUCOSE, URINE NEGATIVE (NEGATIVE); KETONES,URINE NEGATIVE (NEGATIVE); LEUKOCYTE ESTERASE,URINE MODERATE (NEGATIVE); NITRITE,URINE NEGATIVE (NEGATIVE); PROTEIN,URINE 30 mg/dL (NEGATIVE); URINE SPECIFIC GRAVITY 1.035; UROBILINOGEN,URINE NEGATIVE mg/dL (<2.0)
[2018-11-11 03:36] LABS: ABSOLUTE BASOPHILS # (AUTO) 0.1 10^3/uL (0.0-0.2); ABSOLUTE LYMPHOCYTES (AUTO) 1.9 10^3/uL (0.5-4.7); ABSOLUTE MONOCYTES (AUTO) 0.8 10^3/uL (0.1-1.4); ABSOLUTE NEUT (AUTO) 13.5 10^3/uL (1.7-8.2); BASOPHILS % (AUTO) 0.3 % (0-2); EOSINOPHILS % (AUTO) 0.3 % (0-6); HEMATOCRIT 39.5 % (36.0-47.0); HEMOGLOBIN 13.4 g/dL (12.0-15.5); LYMPHOCYTES % (AUTO) 11.6 % (13-45); MEAN CORPUSCULAR HEMOGLOBIN 29.2 pg (27.0-33.4); MEAN CORPUSCULAR HGB CONC 33.9 g/dL (32.0-36.0); MEAN CORPUSCULAR VOLUME 86 fl (80-97); PLATELET COUNT 290 10^3/uL (150-450); RED BLOOD COUNT 4.57 10^6/uL (3.72-5.28); RED CELL DISTRIBUTION WIDTH 13.4 % (11.5-14.0); SEGMENTED NEUTROPHILS % (AUTO) 82.8 % (42-78); TOTAL CELLS COUNTED % (AUTO) 100 %; WHITE BLOOD COUNT 16.3 10^3/uL (4.0-10.5)
[2018-11-11 03:56] LABS: ALBUMIN 4.1 g/dL (3.5-5.0); ALKALINE PHOSPHATASE 122 U/L (38-126); ANION GAP 12 (5-19); ASPARTATE AMINO TRANSFERASE 46 U/L (14-36); BILIRUBIN,DIRECT 0.2 mg/dL (0.0-0.4); BILIRUBIN,TOTAL 0.4 mg/dL (0.2-1.3); BLOOD UREA NITROGEN 15 mg/dL (7-20); CALCIUM 8.9 mg/dL (8.4-10.2); CARBON DIOXIDE 24 mmol/L (22-30); CHLORIDE 103 mmol/L (98-107); GLUCOSE 97 mg/dL (75-110); POTASSIUM 4.5 mmol/L (3.6-5.0); TOTAL PROTEIN 6.8 g/dL (6.3-8.2)
[2018-11-11] MEDS ORDERED: KETOROLAC TROMETHAMINE INJ/PF 30 MG/1 ML SDV IV ONE (04:27)
--- NOTE | 2018-11-11 06:15 | RADIOLOGY REPORT (SQ) ---
EXAM DESCRIPTION: [facility]: US ABDOMEN LIMITED CLINICAL HISTORY: 28 years Female; RUQ TECHNIQUE: Right upper quadrant ultrasound was performed. COMPARISON: None. FINDINGS: Pancreas: Visualized portions are unremarkable. Liver: 16 cm long Portal venous flow is hepatopedal, normal. Gallbladder: Multiple shadowing calculi. Wall is 2 mm, normal. No Chin sign. No pericholecystic edema. Common bile duct: 6 mm. Right kidney: 11 x 5.1 x 6.1 cm. No hydronephrosis. IMPRESSION: 1. Cholelithiasis 2. No sonographic evidence for acute cholecystitis.
[2018-11-11] MEDS ORDERED: NORMAL SALINE 1000 ML 1,000 ML IV ONE (06:38)
--- NOTE | 2018-11-11 06:43 | ER Document Report ---
ED General - General Chief Complaint: Abdominal Pain Stated Complaint: STOMACH PAIN Time Seen by Provider: 11/11/18 03:54 Notes: Patient is Micronesian-speaking, [employer] used. A [id number]. Patient voices afternoon she started with right upper quadrant abdominal pain. States she did vomit x1. Patient's denying any blood in her emesis. Patient's denying any fevers, diarrhea, dysuria. Patient voices she has had this pain in the past but it typically resolves itself. Patient voices that the pain got worse after eating dinner. Patient states she was eating tamales. Patient voices she did take 1 of her Percocet which she had left over from a approximately 10 months ago. TRAVEL OUTSIDE OF THE [place] IN LAST 30 DAYS: No - Related Data Allergies/Adverse Reactions: No Known Allergies Allergy (Verified 06/16/18 09:35) Past Medical History - General Information source: Patient - Social History Smoking Status: Never Smoker Chew tobacco use (# tins/day): No Frequency of alcohol use: None Drug Abuse: None Family History: Reviewed & Not Pertinent Patient has suicidal ideation: No Patient has homicidal ideation: No Renal/ Medical History: Denies: Hx Peritoneal Dialysis Past Surgical History: Reports: Hx Section Review of Systems - Review of Systems Constitutional: denies: Fever EENT: No symptoms reported Cardiovascular: No symptoms reported Respiratory: No symptoms reported Gastrointestinal: See HPI Genitourinary: No symptoms reported Female Genitourinary: No symptoms reported Musculoskeletal: No symptoms reported Skin: No symptoms reported Hematologic/Lymphatic: No symptoms reported Neurological/Psychological: No symptoms reported Physical Exam - Vital signs Vitals: Temp Pulse Resp BP Pulse Ox 97.4 F 80 12 117/69 99 11/10/18 23:22 11/10/18 23:22 11/10/18 23:22 11/10/18 23:22 11/10/18 23:22 - Notes Notes: GENERAL: Alert, interacts well. No acute distress. HEAD: Normocephalic, atraumatic. EYES: Pupils equal, round, and reactive to light. Extraocular movements intact. ENT: Oral mucosa moist, tongue midline. NECK: Full range of motion. Supple. Trachea midline. LUNGS: Clear to auscultation bilaterally, no wheezes, rales, or rhonchi. No respiratory distress. HEART: Regular rate and rhythm. No murmur ABDOMEN: Soft, generalized tenderness noted right upper quadrant. Non-distended. Bowel sounds present in all 4 quadrants. No McBurney's point tenderness EXTREMITIES: Moves all 4 extremities spontaneously. No edema, normal radial and dorsalis pedis pulses bilaterally. No cyanosis. BACK: no cervical, thoracic, lumbar midline tenderness. No saddle anesthesia, normal distal neurovascular exam. No CVA tenderness noted bilaterally. NEUROLOGICAL: Alert and oriented x3. Normal speech. cranial nerves II through XII grossly intact PSYCH: Normal affect, normal mood. SKIN: Warm, dry, normal turgor. No rashes or lesions noted. Course - Re-evaluation Re-evalutation: 11/11/18 06:40 Laboratory 11/11/18 11/11/18 11/11/18 02:56 03:25 03:25 WBC 16.3 H RBC 4.57 Hgb 13.4 Hct 39.5 MCV 86 MCH 29.2 MCHC 33.9 RDW 13.4 Plt Count 290 Lymph % (Auto) 11.6 L [place] % (Auto) 5.0 Eos % (Auto) 0.3 Baso % (Auto) 0.3 Absolute Neuts (auto) 13.5 H Absolute Lymphs (auto) 1.9 Absolute Monos (auto) 0.8 Absolute Eos (auto) 0.0 Absolute Basos (auto) 0.1 Seg Neutrophils % 82.8 H Sodium 138.8 Potassium 4.5 Chloride 103 Carbon Dioxide 24 Anion Gap 12 BUN 15 Creatinine 0.48 L Est GFR ( Amer) > 60 Est GFR (MDRD) Non-Af > 60 Glucose 97 Calcium 8.9 Total Bilirubin 0.4 Direct Bilirubin 0.2 Neonat Total Bilirubin Not Reportable Neonat Direct Bilirubin Not Reportable Neonat Indirect Bili Not Reportable AST 46 H ALT 27 Alkaline Phosphatase 122 Total Protein 6.8 Albumin 4.1 Lipase 106.2 Urine Color EUGENIE Urine Appearance SLIGHTLY-CLOUDY Urine pH 6.0 Ur Specific [place] 1.035 Urine Protein 30 H Urine Glucose (UA) NEGATIVE Urine Ketones NEGATIVE Urine Blood NEGATIVE Urine Nitrite NEGATIVE Urine Bilirubin NEGATIVE Urine Urobilinogen NEGATIVE Ur Leukocyte Esterase MODERATE H Urine WBC (Auto) 17 Urine RBC (Auto) 6 Urine Bacteria (Auto) 1+ Squamous Epi Cells Auto 16 Urine Mucus (Auto) MANY Urine Ascorbic Acid NEGATIVE Urine HCG, Qual NEGATIVE Abdomen Ultrasound 11/11/18 04:26 IMPRESSION: 1. Cholelithiasis 2. No sonographic evidence for acute cholecystitis. Patient's urine was sent for culture, does show signs of dehydration with a specific gravity of 1.035, treated with normal saline solution in the emergency room. Patient was also treated with Toradol for right upper quadrant pain. Upon reassessment of the patient she no longer has any pain. States she continues without nausea. Discussed following up with primary care provider and surgeon for diagnosis of cholelithiasis. Patient voices she is uninsured, will provide phone numbers for [facility] At this time will discharge with return precautions and follow-up recommendations. Verbal discharge instructions given a the bedside and opportunity for questions given. Medication warnings reviewed. Patient is in agreement with this plan and has verbalized understanding of return precautions and the need for primary care follow-up in the next 24-72 hours. This medical record was dictated with voice recognizing software. There may be grammatical, syntax errors that are unintended. - Vital Signs Vital signs: Temp Pulse Resp BP Pulse Ox 97.4 F 80 12 117/69 99 11/10/18 23:22 11/10/18 23:22 11/10/18 23:22 11/10/18 23:22 11/10/18 23:22 - Laboratory Result Diagrams: 11/11/18 03:25 11/11/18 03:25 Laboratory results interpreted by me: 11/11/18 11/11/18 11/11/18 02:56 03:25 03:25 WBC 16.3 H Lymph % (Auto) 11.6 L Absolute Neuts (auto) 13.5 H Seg Neutrophils % 82.8 H Creatinine 0.48 L AST 46 H Urine Protein 30 H Ur Leukocyte Esterase MODERATE H Discharge - Discharge Clinical Impression: Cholelithiasis Qualifiers: Cholelithiasis location: other site Biliary obstruction: without biliary obstruction Qualified Code(s): K80.80 - Other cholelithiasis without obstruction Condition: Stable Disposition: HOME, SELF-CARE Instructions: Gallbladder Disease ([facility]) Additional Instructions: As we discussed you have been seen and treated in the emergency department for gallstones. Please follow-up at [facility] for continued care. Please also follow-up with surgery for elective removal of your gallbladder. Return to the emergency room for any concerns. Prescriptions: Ketorolac Tromethamine [Toradol 10 mg Tablet] 10 mg PO Q8HP PRN #24 tablet PRN Reason: Ondansetron [Zofran Odt 4 mg Tablet] 2 tab PO Q6 PRN #14 tab.rapdis PRN Reason: For Nausea/Vomiting Referrals: CHANG MONTANA MD [PODIATRY TEACHER] - Follow up as needed [facility] [Provider Group] - Follow up as needed [facility] [Provider Group] - Follow up as needed
[2018-11-11 08:21] VITALS: BP 106/65
== END 2018-11-11 08:18 | disposition home or self-care (01) ==
LOC: ER 22:53
DX: K80.20 Calculus of gallbladder without cholecystitis without obstruction (principal); R10.11 Right upper quadrant pain; R10.811 Right upper quadrant abdominal tenderness; R11.11 Vomiting without nausea
CPT/HCPCS: 36415; 87086; 83690; 85025; 81025; 80053; 81001; 76705; J1885; J7030; 96361; 96374; 99284